=== PATIENT | female | born 1990 | race African-American/Black ===

== ENCOUNTER → 2016-03-01 | Emergency (ER) | payer BC ==
[~2016-03-01] VITALS: Ht 182.9 cm; Wt 67.1 kg
[~2016-03-01] MED LIST: AMOXICILLIN500 MG ORAL; BIOTIN2500 MCG PO; CEPHALEXIN500 MG ORAL; DORYX200 MG PO; IBUPROFEN600 MG ORAL; IBUPROFEN800 MG PO; IRON325 M1 PO; MULTIVITAMINS1 EAC2 ORAL; PLAQUENIL200 MG ORAL; PREDNISONE20 MG ORAL; VITAMIN C500 M1 ORAL; VITAMIN D250000 UNI1 ORAL; iud
--- NOTE | 2016-03-01 16:22 | Emergency Room Report ---
History of Present Illness General Chief Complaint: Upper Respiratory Illness Source: Patient Present Illness HPI Patient present with complaints of sore throat Pain with swallowing Denies any fevers Denies any posterior neck pain Denies any chest pain or shortness of breath denies any cough Symptoms ongoing for the past 2 days pain is 4/10 Swollen feeling Allergies: Coded Allergies: No Known Allergies (Verified Allergy, Mild, 02/18/07) Patient History Past Medical History: see triage record Pertinent Family History: none Last Menstrual Period: 02/08/2016 Now: No : 4 Para: 0 Reviewed Nursing Documentation: PMH: Agreed, PSxH: Agreed Nursing Documentation-PMH Hx Cardiac Problems: No Hx Cancer: No Hx Gastrointestinal Problems: No Review of Systems All Other Systems: negative except mentioned in HPI Physical Exam Vital Signs Date Time Temp Pulse Resp B/P Pulse Ox O2 Delivery O2 Flow Rate FiO2 03/01/16 16:04 98.2 88 16 94/63 100 Room Air Sp02 EP Interpretation: reviewed, normal General Appearance: well appearing, no apparent distress Head: normocephalic, atraumatic Eyes: bilateral eye EOMI, bilateral eye PERRL ENT: hearing grossly normal, normal pharynx, TMs + canals normal, uvula midline Neck: full range of motion, supple, no meningismus, no bony tend Respiratory: lungs clear, normal breath sounds, no rhonchi, no respiratory distress, no retraction, no accessory muscle use Gastrointestinal: normal bowel sounds, non tender, soft, no mass, no organomegaly, non-distended, no guarding, no hernia, no pulsatile mass, no rebound Genitourinary: no CVA tenderness Musculoskeletal: normal inspection Neurologic: oriented x3, responsive, template worker III-XII nml as tested, motor strength/ tone normal, sensory intact Psychiatric: mood/affect normal Skin: normal color, no rash, warm/dry, palpation normal Lymphatic: normal inspection, no adenopathy Medical Decision Making Diagnostic Impression: Primary Impression: pharyngitis ER Course Patient's lungs are in line with pharyngitis Airway is patent there is no signs of any stridor Patient is stable for initial conservative outpatient trial on oral antibiotics and will return with any change in symptom Last Vital Signs Date Time Temp Pulse Resp B/P Pulse Ox O2 Delivery O2 Flow Rate FiO2 03/01/16 16:04 98.2 88 16 94/63 100 Room Air Status: unchanged Disposition: HOME, SELF-CARE Condition: Stable Scripts Prednisone* (PREDNISONE*) 20 Mg Tablet 20 MG ORAL DAILY, #5 TAB Prov: SVITLANA SINCLAIR D.O. 03/01/16 Ibuprofen* (MOTRIN*) 600 Mg Tablet 600 MG ORAL Q8H Y for For Pain, #20 TAB 0 Refills Prov: SVITLANA SINCLAIR D.O. 03/01/16 Amoxicillin* (AMOXIL*) 500 Mg Capsule 500 MG ORAL THREE TIMES A DAY, #21 CAP Prov: SVITLANA SINCLAIR D.O. 03/01/16 Patient Instructions: Pharyngitis, [id number] Additional Instructions: Patient is provided with the discharge instructions notified to follow up with primary doctor in the next 2-3 days otherwise return to the er with any worsening symptoms. SVITLANA SINCLAIR D.O. Mar 01, 2016 16:22
[2016-03-01 16:33] VITALS: BP 94/63
== END | disposition home or self-care (01) ==
LOC: EMR 16:40
DX: J02.9 Acute pharyngitis, unspecified (principal)
CPT/HCPCS: 99282